=== PATIENT | male | born 1995 | race Caucasian/White ===

== ENCOUNTER 2017-03-12 21:27 | Emergency (ER) | payer SELFPAY ==
[2017-03-12 21:51] LABS: Bilirubin Negative (Negative); Blood, Urine Trace (Negative); Glucose, Urine (Dipstick) >=1000 mg/dL (Negative); Ketone, Urine Negative (Negative); Nitrite Negative (Negative); Protein, Urine (Dipstick) Negative (Neg-Trace); Urobilinogen 0.2 mg/dL (0.2-1.0)
[2017-03-12 21:53] LABS: Bacteria/HPF None Seen HPF (None Seen); Hyaline Casts/LPF 0-3 HYALINE CAST LPF (0-3 Hyaline); RBC/HPF 0-3 HPF (0-3); Squamous Epithelial None Seen HPF (0-3); WBC/HPF 21-50 HPF (0-3)
[2017-03-12 22:14] LABS: #Basophils 0.1 thou/uL (0.0-0.2); #Eosinphils 0.2 thou/uL (0.0-0.7); #Lymphocytes 1.9 thou/uL (1.20-3.40); #Monocytes 0.6 thou/uL (0.11-0.59); #Neutrophils 3.7 thou/uL (1.40-6.50); %Eosinophils 3.1 % (0.0-10.0); %Lymphocytes 29.7 % (28.0-48.0); %Monocytes 8.9 % (0.0-4.0); Hematocrit 41.2 % (42.0-52.0); Mean Platelet Volume 6.8 fL (7.4-10.4); Red Blood Cell (RBC) Count 4.25 mill/uL (4.00-5.20); White Blood Cell (WBC) Count 6.4 thou/uL (4.8-10.8)
[2017-03-12 22:34] LABS: ALT (SGPT) 21 U/L (8-55); AST (SGOT) 18 U/L (10-45); Alkaline Phosphatase 85 U/L (Less than 750); Anion Gap 17 mmol/L (10-20); BUN (Urea Nitrogen) 19 mg/dL (8.4-21.0); Bilirubin, Total 0.3 mg/dL (0.2-1.2); Calc. Creatinine Clearance 0 mL/min (70-130); Calcium 9.1 mg/dL (7.8-10.44); Carbon Dioxide 24 mmol/L (22-29); Chloride 94 mmol/L (98-107); Estimated GFR-MDRD 68; Globulin 2.5 g/dL (2.4-3.5); Protein, Total 6.3 g/dL (6.0-8.3)
[2017-03-12] MEDS ORDERED: Insulin Regular 300 UNITS/3 ML VIAL ONE (23:22)
== END 2017-03-13 00:30 | disposition home or self-care (01) ==
LOC: ERS 21:27
DX: E10.65 Type 1 diabetes mellitus with hyperglycemia (principal); F17.210 Nicotine dependence, cigarettes, uncomplicated
CPT/HCPCS: 36415; 36416; 80053; 81003; 81015; 82010; 85025; 96361; 96374; J1815

== ENCOUNTER 2017-03-14 19:18 | Inpatient (IN) | payer SELFPAY ==
[2017-03-14 19:49] LABS: #Basophils 0.1 thou/uL (0.0-0.2); #Lymphocytes 1.2 thou/uL (1.20-3.40); #Monocytes 0.6 thou/uL (0.11-0.59); #Neutrophils 6.6 thou/uL (1.40-6.50); %Basophils 0.7 % (0.0-1.0); %Eosinophils 0.5 % (0.0-10.0); %Lymphocytes 14.2 % (28.0-48.0); %Monocytes 7.4 % (0.0-4.0); Hematocrit 39.8 % (42.0-52.0); Mean Platelet Volume 6.5 fL (7.4-10.4); Red Blood Cell (RBC) Count 4.01 mill/uL (4.00-5.20); White Blood Cell (WBC) Count 8.6 thou/uL (4.8-10.8)
--- NOTE | 2017-03-14 19:54 | RAD ---
CHEST ONE VIEW 03/14/17 HISTORY: Hyperglycemia. COMPARISON: None. FINDINGS: The lungs are clear. No pneumothorax or effusion. The cardiac silhouette and mediastinal contours ar e normal. IMPRESSION: No acute intrathoracic abnormality. POS: [facility]
[2017-03-14 19:56] LABS: Anion Gap 16 mmol/L (-14-95); T. Carbon Dioxide 9.8 mmol/L (1.0-85.0); pH (Venous) 7.249 (7.35-7.45); vO2 Saturation-calc 97.7 % (0.0-100.0)
[2017-03-14 20:11] LABS: Bilirubin Negative (Negative); Blood, Urine Trace (Negative); Glucose, Urine (Dipstick) >=1000 mg/dL (Negative); Ketone, Urine > or equal to 80 mg/dL (Negative); Nitrite Negative (Negative); Protein, Urine (Dipstick) Negative (Neg-Trace); Urobilinogen 0.2 mg/dL (0.2-1.0)
[2017-03-14 20:12] LABS: ALT (SGPT) 22 U/L (8-55); AST (SGOT) 19 U/L (10-45); Alkaline Phosphatase 92 U/L (Less than 750); Anion Gap 29 mmol/L (10-20); BUN (Urea Nitrogen) 17 mg/dL (8.4-21.0); Bilirubin, Total 0.4 mg/dL (0.2-1.2); Calc. Creatinine Clearance 0 mL/min (70-130); Chloride 96 mmol/L (98-107); Estimated GFR-MDRD 70; Globulin 2.2 g/dL (2.4-3.5); Lipase 8 U/L (8-78); Magnesium 1.9 mg/dL (1.7-2.2); Phosphorus 2.9 mg/dL (2.3-4.7); Protein, Total 5.7 g/dL (6.0-8.3)
[2017-03-14 20:13] LABS: Bacteria/HPF None Seen HPF (None Seen); Hyaline Casts/LPF 0-3 HYALINE CAST LPF (0-3 Hyaline); RBC/HPF 0-3 HPF (0-3); Squamous Epithelial None Seen HPF (0-3)
[2017-03-14 20:17] LABS: Carbon Dioxide 8 mmol/L (22-29)
[2017-03-14] MEDS ORDERED: Insulin Regular 300 UNITS/3 ML VIAL ONE (20:19)
[2017-03-14] MEDS ORDERED: Insulin Regular 100 units/100 ml in NS IVPB SCH (20:45)
[2017-03-14] MEDS ORDERED: NS 0.9% w/ 20 MEQ KCL 1,000 ML IV SCH (21:15)
[2017-03-14 22:16] LABS: Anion Gap 26 mmol/L (10-20); BUN (Urea Nitrogen) 15 mg/dL (8.4-21.0); Calc. Creatinine Clearance 0 mL/min (70-130); Calcium 7.9 mg/dL (7.8-10.44); Chloride 103 mmol/L (98-107); Estimated GFR-MDRD 77
[2017-03-14 22:19] LABS: Carbon Dioxide 8 mmol/L (22-29)
[2017-03-14] MEDS ORDERED: Ondansetron ODT 4 MG TAB SL PRN (22:25)
[2017-03-14] MEDS ORDERED: Ondansetron HCl/PF 4 MG/2 ML Vial IVP PRN (22:25)
[2017-03-14] MEDS ORDERED: Sodium Chloride 0.9% 1,000 ML IV PRN ×4 (23:15)
[2017-03-14] MEDS ORDERED: Dextrose 5 %-0.45 % NaCl 1,000 ML IV PRN (23:15)
[2017-03-14] MEDS ORDERED: NS 0.9% w/ 20 MEQ KCL 1,000 ML IV PRN ×2 (23:15)
[2017-03-14] MEDS ORDERED: CCU Electrolyte Replacement 1 EACH IVPB SCH (23:15)
[2017-03-14] MEDS ORDERED: Acetaminophen 325 MG TAB PO PRN (23:15)
[2017-03-14] MEDS ORDERED: Potassium Phosphate 15 MMOL in Sodium Chloride 0.9% 250 ML 250 ML IV PRN (23:18)
[2017-03-14] MEDS ORDERED: Potassium Chloride 20 MEQ TAB PO PRN (23:18)
[2017-03-14] MEDS ORDERED: CCU ELECTROLYTE REPLACEMENT PROTOCOL FS PRN (23:18)
[2017-03-14] MEDS ORDERED: Magnesium 2 GM/NS 0.9% 100 ML 2 GM in Premix Bag 1 BAG IVPB PRN (23:18)
[2017-03-14] MEDS ORDERED: Magnesium Oxide 400 MG TAB PO PRN ×2 (23:18)
[2017-03-14] MEDS ORDERED: Potassium Phosphate 9 MMOL in Sodium Chloride 0.9% 100 ML IVPB PRN (23:18)
[2017-03-14] MEDS ORDERED: Potassium Chloride 40 MEQ in Premix Bag 1 BAG IVPB PRN (23:18)
[2017-03-14] MEDS ORDERED: Potassium Chloride 40 MEQ in Sodium Chloride 0.9% 250 ML 250 ML IVPB PRN (23:18)
[2017-03-14] MEDS ORDERED: Potassium Phosphate 12 MMOL in Sodium Chloride 0.9% 250 ML 250 ML IV PRN (23:18)
[2017-03-14] MEDS: D5 1/2 NS w/20 mEq KCL 1,000 ML IV PRN (23:36)
[2017-03-14 23:47] VITALS: BMI 22.4
[2017-03-14 23:50] LABS: Anion Gap 16 mmol/L (10-20); BUN (Urea Nitrogen) 13 mg/dL (8.4-21.0); Calc. Creatinine Clearance 124 mL/min (70-130); Calcium 7.8 mg/dL (7.8-10.44); Carbon Dioxide 14 mmol/L (22-29); Chloride 108 mmol/L (98-107); Estimated GFR-MDRD Greater than 90
--- NOTE | 2017-03-15 01:22 | HP-2 ---
DATE OF ADMISSION: 03/14/2017 CODE STATUS: FULL. PRIMARY CARE PHYSICIAN: Rohan carrera. ATTENDING: Dr. Griffin. RESIDENT: Sachin Murdock MD HISTORIAN: Patient. CHIEF COMPLAINT: DKA. HISTORY OF PRESENT ILLNESS: Errol Wyatt is a 21-year-old male with past medical history of type 1 d iabetes mellitus, who presents with 2 to 3 days of feeling ill with nausea, vomiting, and abdominal pain. Patient also states he has been having chills. He believes he is in DKA. The patient states that he is from [place] and he is moving to [place] to find a job, but he is currently homeless. He states that he has no primary care provider and no insurance and he has been out of his Lantus fo r the last couple of months. He normally takes 32 units of Lantus. He also states that he has been on 1 to 7 units of sliding scale Novolin with every meal, but he has been out of that for the last week. In the ER, he received 3 liters of normal saline with 20 mEq of KCl. He also received 7 unit s insulin bolus and is getting 7 units of insulin drip per hour. Patient's diet is poorly controlle d. He states that he does not eat much and is currently hungry, but when he does, he does mostly li ke cheetos and another snacks. He states that he is feeling better and his symptoms of nausea, vomi ting, abdominal pain have improved since arriving to the ER. PAST MEDICAL HISTORY: Type 1 diabetes mellitus. PAST SURGICAL HISTORY: None. ALLERGIES: LEVEMIR, he gets a local rash. MEDICATIONS: 1. A 32 units of Lantus subcu daily. 2. One to seven units sliding scale Novolin before every meal. FAMILY HISTORY: Maternal grandfather had type 1 diabetes. SOCIAL HISTORY: Tobacco, he has got a 5-pack-year history, 1 pack per day for the last 5 years. He denied any significant alcohol use, stating he only occasionally drinks alcohol on the weekends and endorsed marijuana use, but no other drug use. He is currently homeless. He tried to stay at [facility], but he was randomly drug tested there and was positive for marijuana, so they did not let him stay there anymore. REVIEW OF SYSTEMS: General: Positive for fevers, chills, night sweats and fatigue. Eyes: Positiv e for blurry vision, but no eye pain. ENT: Positive for nasal congestion, rhinorrhea, and sore thr oat. Respiratory: Positive for cough, congestion, and shortness of breath. Cardiovascular: Posit lakia for chest pain and palpitations. No edema, PND, or orthopnea. Gastrointestinal: Positive for nausea and vomiting. No diarrhea, constipation, or GI bleeding. Also, positive for abdominal pain. Genitourinary: Denies incontinence, dysuria, or discharge. Positive for polyuria. Skin: Denies rashes, lesions, jaundice, or itching. Musculoskeletal: Denies pain, tenderness, stiffness, swell ing, or arthritis. Neurologic: Denies numbness, weakness, syncope, or seizures. Psych: Denies an y anxiety or depression. PHYSICAL EXAMINATION: VITAL SIGNS: Blood pressure 114/70, pulse 90, respiratory rate 20, T-max 98.2, pulse oximetry 95% o n room air, current weight 72 kilograms. GENERAL: The patient is alert and oriented x4, in no acute distress. Well-developed, well-nourishe d, appropriately interactive. EYES: Pupils are equal, round, reactive to light and accommodation. Extraocular muscles intact. C onjunctiva within normal limits. ENT: Tympanic membranes pearly anne without bulging or erythema. Nasal mucosa and oropharynx is wi thin normal limits. NECK: Supple, without lymphadenopathy or thyromegaly. CARDIOVASCULAR: Regular rate and rhythm. No murmurs or gallops. Radial and pedal pulses are prese nt and equal bilaterally. RESPIRATORY: Normal effort, no retractions. CHEST: Clear to auscultation bilaterally. SKIN: Warm and dry without cyanosis or lesions. ABDOMEN: Soft, nontender, bowel sounds x4. No masses or distention. EXTREMITIES: No clubbing, cyanosis, or edema. MUSCULOSKELETAL: Structure and tone within normal limits. Muscle strength 5/5. Full range of kelly on. NEUROLOGICAL: No focal deficits. Sensation within normal limits. PSYCHIATRIC: Appropriate. LABORATORY DATA AND IMAGING: White blood cell count 8.6, hemoglobin 12.6, hematocrit 39.8, platelet s 317, MCV was 99.1. Sodium 129, potassium is 4.3, chloride 96, bicarbonate 8, BUN 17, creatinine 1 .32, glucose 664, anion gap of 29, calcium 8.0, total protein 5.7, albumin 3.5, total bilirubin 0.4, AST 19, ALT 22, alkaline phosphatase 92, beta hydroxybutyrate was 9.35, magnesium was 1.9, phosphor us 2.9, lipase of 8. UA was positive for trace blood, ketones were greater than 80, glucose was gre ater than 100, red blood cells 0 to 3 and white blood cells 4 to 6. VBG had a pH of 7.249. EKG vania wed normal sinus rhythm with no ST changes. Chest x-ray showed no acute intrathoracic abnormality. ASSESSMENT AND PLAN: A 21-year-old male with past medical history of type 1 diabetes mellitus, who presents in diabetic ketoacidosis. 1. Diabetic ketoacidosis, likely secondary to medication noncompliance. Admit to IMCU. Start DKA protocol. Monitor electrolytes, anion gap, and blood sugars closely. Insulin drip, IV fluids with KCl at 500 mL an hour. At this time, BMP every 2 hours. 2. Type 1 diabetes mellitus. Discharge Door Operator the patient on the importance of medication compliance, accor ding to the patient's home dose is 32 units of Lantus and 1 to 7 units sliding scale insulin Novolin before meal. 3. Acute kidney injury. Initial creatinine was 1.32. His creatinine is currently down trending an d has improved since being on IV fluids. We will continue to monitor. 4. Macrocytic anemia. Patient is homeless and has poor diet. We are checking a folate and B12. 5. History of substance abuse, endorse marijuana use. Check urine drug screen. 6. Code status is FULL. 7. Activity: Ad kayce. 8. Diet: N.p.o. 9. Deep venous thrombosis prophylaxis: None as the patient is currently ambulatory. Disposition and length of hospital stay, 2 days. Symptomatic medication will be provided. History and physical exam as well as management have been discussed with Dr. Griffin.
[2017-03-15 01:27] LABS: Anion Gap 14 mmol/L (10-20); BUN (Urea Nitrogen) 10 mg/dL (8.4-21.0); Calc. Creatinine Clearance 130 mL/min (70-130); Carbon Dioxide 17 mmol/L (22-29); Chloride 107 mmol/L (98-107); Estimated GFR-MDRD Greater than 90
[2017-03-15] MEDS: D5 1/2 NS w/20 mEq KCL 1,000 ML IV PRN (02:45)
[2017-03-15] MEDS ORDERED: Dextrose 50% Abboject 50 ML SYRINGE SLOW IVP PRN (03:28)
[2017-03-15] MEDS ORDERED: Dextrose 5% in Water 1,000 ML IV PRN (03:28)
[2017-03-15] MEDS ORDERED: HumaLOG 300 UNITS/3 ML VIAL SC PRN ×2 (03:28)
[2017-03-15] MEDS ORDERED: Insulin NPH/Reg Insulin Hm 300 UNITS/3 ML VIAL SC SCH ×2 (04:00→09:00)
[2017-03-15 04:05] LABS: Amphetamine Not Detected (NotDetected); Methadone Not Detected (NotDetected); Methamphetamine Not Detected (NotDetected)
[2017-03-15 05:45] LABS: Anion Gap 10 mmol/L (10-20); BUN (Urea Nitrogen) 7 mg/dL (8.4-21.0); Calc. Creatinine Clearance 136 mL/min (70-130); Carbon Dioxide 20 mmol/L (22-29); Chloride 108 mmol/L (98-107); Estimated GFR-MDRD Greater than 90
--- NOTE | 2017-03-15 07:14 | PDOC.FM ---
- Subjective Subjective: Pt states that he feels somewhat better this morning and is very hungry. He denies dizziness, n/v, chest pain, SOB. There were no acute events over night. ROS is negative other than previously noted - Objective MAR Reviewed: Yes Vital Signs & Weight: Vital Signs (12 hours) Temp Pulse Resp BP Pulse Ox 03/15/17 04:00 98.1 F 86 16 98/76 98 03/14/17 23:15 98.9 F 90 16 03/14/17 23:09 98.9 F 90 16 113/58 L 97 Weight Weight 75.206 kg I&O: 03/14/17 03/15/17 03/16/17 07:59 06:59 06:59 Intake Total Output Total Balance Result Diagrams: 03/14/17 19:45 03/15/17 05:18 <Kaiden Grissom - Last Filed: 03/15/17 07:12> - Objective Vital Signs & Weight: Vital Signs (12 hours) Temp Pulse Resp BP Pulse Ox 03/15/17 07:35 97.9 F 60 18 99/55 L 97 03/15/17 07:09 98.1 F 86 16 98 03/15/17 04:00 98.1 F 86 16 98/76 98 Weight Weight 165 lb 12.8 oz I&O: 03/14/17 03/15/17 03/16/17 07:59 06:59 06:59 Intake Total 360 Output Total Balance 360 Result Diagrams: 03/14/17 19:45 03/15/17 08:55 <Alessandro Griffin - Last Filed: 03/15/17 10:39> Phys Exam - Physical Examination HEENT: PERRLA, moist MMs Neck: no JVD, full ROM Respiratory: clear to auscultation bilateral Cardiovascular: RRR, no significant murmur Gastrointestinal: soft, non-tender, no distention, positive bowel sounds Musculoskeletal: no edema Neurological: non-focal, normal sensation, moves all 4 limbs Psychiatric: normal affect, A&O x 3 Skin: no rash, normal turgor <Kaiden Grissom - Last Filed: 03/15/17 07:12> Dx/Plan (1) DKA (diabetic ketoacidoses) Code(s): E13.10 - OTH DIABETES MELLITUS WITH KETOACIDOSIS WITHOUT COMA Status : Acute (2) JEAN (acute kidney injury) Code(s): N17.9 - ACUTE KIDNEY FAILURE, UNSPECIFIED Status: Resolved (3) History of substance abuse Code(s): Z87.898 - PERSONAL HISTORY OF OTHER SPECIFIED CONDITIONS Status: Acute (4) Macrocytic anemia Code(s): D53.9 - NUTRITIONAL ANEMIA, UNSPECIFIED Status: Chronic (5) Type 1 diabetes mellitus Status: Chronic Qualifiers: Diabetes mellitus complication status: with ketoacidosis Diabetes mellitus complication detail: without coma Qualified Code(s): E10.10 - Type 1 diabetes mellitus with ketoacidosis without coma - Plan Plan: 1. DKA -anion gap has closed -BG is below 200 -insulin drip stopped, start 70/30 and food -potassium is up trending on the last 2 BMP to 4.0 -continue to monitor BMP -consider move to the floor today and dc tomorrow 2. JEAN -creatinine has returned to normal -2/2 fluid status from DKA 3. Macrocytic Anemia -normal B12 and Folate -asymptomatic. fu w/PCP outpatient 4. Substance abuse -inupiat on cessation <Kaiden Grissom - Last Filed: 03/15/17 07:12> Attending Addendum - Attending Addendum I personally evaluated the patient and discussed the management with [ Jaciel] I agree with the History, Examination, Assessment and Plan documented above with any addition or exceptions noted below. DKA resolved. Will d/c later today if tolerating PO. <Alessandro Griffin - Last Filed: 03/15/17 10:39>
[2017-03-15] MEDS ORDERED: FLU VACC QS2017-18 36 mo. & older 0.5 ML SYRINGE IM ONE (09:00)
[2017-03-15 09:28] LABS: Anion Gap 12 mmol/L (10-20); BUN (Urea Nitrogen) 6 mg/dL (8.4-21.0); Calc. Creatinine Clearance 142 mL/min (70-130); Calcium 8.2 mg/dL (7.8-10.44); Carbon Dioxide 19 mmol/L (22-29); Chloride 106 mmol/L (98-107); Estimated GFR-MDRD Greater than 90
[2017-03-15 12:25] VITALS: BP 115/82; TEMP 98.1
[2017-03-15 13:26] LABS: Anion Gap 14 mmol/L (10-20); BUN (Urea Nitrogen) 6 mg/dL (8.4-21.0); Calc. Creatinine Clearance 139 mL/min (70-130); Calcium 8.2 mg/dL (7.8-10.44); Carbon Dioxide 20 mmol/L (22-29); Chloride 107 mmol/L (98-107); Estimated GFR-MDRD Greater than 90
--- NOTE | 2017-03-16 04:43 | DIS-2 ---
DATE OF ADMISSION: 03/14/2017 DATE OF DISCHARGE: 03/15/2017 RESIDENT: Kaiden Grissom D.O. ADMITTING ATTENDING: Dr. Alessandro Griffin DISCHARGE ATTENDING: Dr. Alessandro Griffin CONSULTS: None. PROCEDURES: None. PRIMARY DIAGNOSIS: Diabetic ketoacidosis. SECONDARY DIAGNOSES: Acute kidney injury and substance abuse. DISCHARGE MEDICATIONS: The patient should have been discharged on insulin 70/ 30. However, the patient left AMA. DISCONTINUED MEDICATIONS: None. HISTORY OF PRESENT ILLNESS: The patient was admitted in DKA, was put on DKA protocol, anion gap closed quickly as did the patient's blood glucose. At no time was the patient unstable during his stay. The patient stated that he could not afford the insulin he had been written and therefore was not taking it. He is also homeless and apparently transient he used to live in [place] , is now [place] It was explained to the patient that we working on titrating his blood glucose with 70/30 as this is the cheapest option for insulin and it can be bought over the counter. Prior to discharge the patient left to go have a cigarette and never returned. DISPOSITION: Stable. DISCHARGE INSTRUCTIONS: The patient left against medical advice. MTDD
--- NOTE | 2017-04-18 15:25 | EKG ---
Test Reason : Blood Pressure : / mmHG Vent. Rate : 097 BPM Atrial Rate : 097 BPM P-R Int : 126 ms QRS Dur : 088 ms QT Int : 366 ms P-R-T Axes : 060 105 024 degrees QTc Int : 464 ms Normal sinus rhythm Rightward axis Borderline ECG Confirmed by LINA TORRES D.O. ([id number]), graphics editor XIMENA YAÑEZ ([id number] on 04/18/2017 3:25:32 PM Referred By: Confirmed By:LINA TORRES D.O.
== END 2017-03-15 17:19 | disposition left against medical advice (07) | DRG 638 ==
LOC: ERS 19:18 → IMCU/EMU 22:52
PROVIDERS: ADMIT Family Medicine; ATTEND Family Medicine
DX: E10.10 Type 1 diabetes mellitus with ketoacidosis without coma (principal); N17.9 Acute kidney failure, unspecified; Z79.4 Long term (current) use of insulin; Z59.0 Homelessness; Z91.120 Patient's intentional underdosing of medication regimen due to financial hardship; F17.210 Nicotine dependence, cigarettes, uncomplicated; F12.10 Cannabis abuse, uncomplicated; D64.9 Anemia, unspecified
CPT/HCPCS: 36415; 36416; 71010; 80053; 80306; 81003; 81015; 82010; 82330; 82607; 82746; 82803; 83036; 83690; 83735; 84100; 85025; 93005; 96361; 96365; 96366; 96376; 99406; J1815; J7050